=== PATIENT | female | born 1950 | race Caucasian/White ===

== ENCOUNTER 2018-06-05 10:29 | Outpatient (CLI) | payer MEDICARE ==
[~2018-06-05 10:29] MED LIST: Iopamidol 370 76% 100 ML VIAL ONE
--- NOTE | 2018-06-05 15:12 | CT ---
CT ABDOMEN WITH AND WITHOUT IV CONTRAST: CT PELVIS WITH AND WITHOUT IV CONTRAST: 06/05/2018 HISTORY: Hematuria for three years. History of prior appendectomy. COMPARISON: None available. FINDINGS: Minimal atelectasis is present in the region of the lingula. There is an approximately 5 mm pulmonar y nodule, left lower lobe, in addition to a linear nodular density at the posterior right lung base. The linear nodular areas of diminished attenuation are likely attributable to scarring. However, th ere are additional sub-4-mm nodular densities at the right lung base, as well as a few tiny pleural-b ased nodular densities, right lung base, largest measuring 4 mm. These nodular densities are overall nonspecific and do measure less than 6 mm. Degenerative changes are seen in the spine with S-shaped scoliotic curvature of the thoracolumbar spi ne. Subcentimeter sclerotic lesions are seen within the right iliac bone, which demonstrate interdig itated margins and are most suggestive of bone islands. Vascular calcifications are seen in the abdominal aorta and involving the iliac arteries No renal or ureteral calculi are seen bilaterally. Subcentimeter, fno-brxxy-th-characterize, hypoden se lesions are seen in each kidney. The largest hypodense lesions within the mid portion, right kidn ey, measuring 12 mm and 10 mm, respectively, demonstrate fluid attenuation most suggestive of small c ysts. No enhancing renal lesion is seen. No hydronephrosis or hydroureter is present. There is a subcentimeter, ncl-tfmze-yy-characterize, hypodense lesion at the posterior aspect, right hepatic lobe (image 15, series 3), which is too small to further characterize. The spleen, pancreas, and bilateral adrenal glands demonstrate a normal CT appearance. The urinary bladder is incompletely distended but, otherwise, grossly normal in appearance. The urinary bladder is lobulated in appearance with a slightly heterogeneous mass in the fundus of th e uterus, measuring 4 cm, which demonstrates multiple calcifications, consistent with uterine fibroid . Additional calcifications are also seen in the region of the body of the uterus, also likely relat ed to uterine fibroids. A small amount of retained fecal material is seen throughout the colon. The small bowel is normal in caliber. A tiny pericardial effusion is present. No free fluid, fluid collection, or lymphadenopathy is seen in the abdomen or pelvis. IMPRESSION: 1. Non-specific pulmonary nodules each lung base. Follow-up evaluation in six months is recommended . 2. Small right renal cyst, in addition to a subcentimeter, ins-oozqz-vi-characterize, hypodense lesi ons in each kidney. No renal or ureteral calculi are seen bilaterally, and there is enhancing renal m ass present. Delayed images demonstrate no definite filling defects within the visualized opacified renal collecting systems or segmentally visualized opacified ureters. 3. Subcentimeter, any-yriqz-fp-characterize, hypodense lesion, right hepatic lobe. 4. Tiny pericardial effusion. POS: [facility]
== END 2018-06-05 10:30 | disposition home or self-care (01) ==
LOC: SCSCT 10:29
PROVIDERS: ATTEND Urology
DX: R31.29 Other microscopic hematuria (principal); R91.8 Other nonspecific abnormal finding of lung field; N28.1 Cyst of kidney, acquired; N28.89 Other specified disorders of kidney and ureter; K76.9 Liver disease, unspecified; I31.3 Pericardial effusion (noninflammatory)
CPT/HCPCS: 74178; 82565

== ENCOUNTER 2019-01-24 13:51 | Outpatient (CLI) | payer MEDICARE ==
--- NOTE | 2019-01-24 16:30 | MMO ---
Bilateral MAMMO Bilat Screen [facility]DI. CLINICAL HISTORY: Patient is 68 years old and is seen for screening. The patient has the following family history of breast cancer: grandmother. The patient has no personal history of cancer. VIEWS: The views performed were: bilateral craniocaudal and bilateral mediolateral oblique. FILMS COMPARED: The present examination has been compared to prior imaging studies performed at [facility] on 07/18/2013, 11/14/2014, 02/24/2016 and 04/27/2017. This study has been interpreted with the assistance of computer-aided detection. MAMMOGRAM FINDINGS: There are scattered fibroglandular densities. There are stable benign appearing calcifications seen in both breasts. There are no suspicious masses, suspicious calcifications, or new areas of architectural distortion. IMPRESSION: THERE IS NO MAMMOGRAPHIC EVIDENCE OF MALIGNANCY. A ROUTINE FOLLOW-UP MAMMOGRAM IN 1 YEAR IS RECOMMENDED. ACR BI-RADS Category 2 - Benign finding MAMMOGRAPHY NOTE: 1. A negative mammogram report should not delay a biopsy if a dominant of clinically suspicious mass is present. 2. Approximately 10% to 15% of breast cancers are not detected by mammography. 3. Adenosis and dense breasts may obscure an underlying neoplasm.
== END 2019-01-24 13:52 | disposition home or self-care (01) ==
LOC: SCSMAMMO 13:51
PROVIDERS: ATTEND Obstetrics & Gynecology
DX: Z12.31 Encounter for screening mammogram for malignant neoplasm of breast (principal); Z80.3 Family history of malignant neoplasm of breast
CPT/HCPCS: 77067

== ENCOUNTER 2019-02-24 15:35 | Observation (INO) | payer MEDICARE ==
[2019-02-24] MEDS ORDERED: Ondansetron PF 4 MG/2 ML Vial ONE ×2 (16:02→16:50)
[2019-02-24] MEDS ORDERED: Meclizine HCl 25 MG TAB ONE (16:02)
[2019-02-24 16:22] LABS: #Lymphocytes 1.6 thou/uL (1.20-3.40); #Monocytes 0.3 thou/uL (0.11-0.59); #Neutrophils 5.1 thou/uL (1.40-6.50); %Basophils 0.6 % (0.0-1.0); %Eosinophils 0.5 % (0.0-10.0); %Lymphocytes 22.5 % (21.0-51.0); %Monocytes 4.2 % (0.0-10.0); %Neutrophils 72.2 % (42.0-75.0); Hemoglobin 15.6 g/dL (12.0-16.0); Mean Corpuscular HGB CONC 35.2 g/dL (32.0-36.0); Mean Corpuscular Hemoglobin 32.8 pg (27.0-31.0); Mean Corpuscular Volume 93.2 fL (78.0-98.0); Mean Platelet Volume 7.8 fL (7.4-10.4); Platelet Count 231 thou/uL (130-400); RBC Distribution Width 11.2 % (11.5-14.5); Red Blood Cell (RBC) Count 4.77 mill/uL (4.20-5.40); White Blood Cell (WBC) Count 7.1 thou/uL (4.8-10.8)
--- NOTE | 2019-02-24 16:32 | CT ---
EXAM: Brain CTWithout contrast: HISTORY: Vertigo COMPARISON: 05/17/2012 FINDINGS: No focal mass or midline shift. No intra or extra-axial hemorrhage. Sinuses and mastoids are clear of acute process. IMPRESSION: No mass or bleed or other significant acute intracranial process.
[2019-02-24 16:40] LABS: ALT (SGPT) 31 U/L (8-55); AST (SGOT) 23 U/L (5-34); Albumin 4.3 g/dL (3.4-4.8); Alkaline Phosphatase 130 U/L (40-150); Anion Gap 16 mmol/L (10-20); BUN (Urea Nitrogen) 10 mg/dL (9.8-20.1); Bilirubin, Total 0.4 mg/dL (0.2-1.2); Calc. Creatinine Clearance 0 mL/min (70-130); Calcium 10.6 mg/dL (7.8-10.44); Carbon Dioxide 25 mmol/L (23-31); Chloride 103 mmol/L (98-107); Estimated GFR-MDRD 84; Globulin 3.4 g/dL (2.4-3.5); Glucose 129 mg/dL (80-115); Potassium 3.5 mmol/L (3.5-5.1); Protein, Total 7.7 g/dL (6.0-8.3)
[2019-02-24 16:48] LABS: Sodium 140 mmol/L (136-145)
[2019-02-24] MEDS ORDERED: Aspirin Chewable 81 MG TAB ONE (16:50)
[2019-02-24] MEDS ORDERED: Promethazine HCl 25 MG/ML VIAL ONE (17:11)
[2019-02-24 17:31] LABS: Bilirubin Negative (Negative); Blood, Urine Trace (Negative); Clarity Hazy (Clear); Glucose, Urine (Dipstick) Negative (Negative); Leukocyte Trace (Negative); Nitrite Negative (Negative); Protein, Urine (Dipstick) Negative (Neg-Trace); Urobilinogen 0.2 mg/dL (0.2-1.0)
[2019-02-24 17:34] LABS: Bacteria/HPF 2+ HPF (None Seen); Crystals/HPF 1+ AMORPH URATES HPF (Negative); RBC/HPF 0-3 HPF (0-3); WBC/HPF 0-3 HPF (0-3)
[2019-02-24] MEDS ORDERED: diphenhydrAMINE 50 MG/ML VIAL ONE (17:42)
[2019-02-24 19:28] VITALS: BMI 30.7
[2019-02-24 20:04] LABS: Troponin I Less than 0.010 ng/mL (< 0.028)
[2019-02-24 23:34] LABS: Troponin I Less than 0.010 ng/mL (< 0.028)
[2019-02-24] MEDS ORDERED: Acetaminophen 650 MG Suppository PR PRN (23:45)
[2019-02-24] MEDS ORDERED: Sodium Chloride 0.9% 1,000 ML IV SCH (23:45)
[2019-02-24] MEDS ORDERED: Senokot S 8.6-50 MG TAB PO PRN (23:45)
[2019-02-24] MEDS ORDERED: Acetaminophen 325 MG TAB PO PRN (23:45)
[2019-02-25] MEDS ORDERED: Promethazine 25 MG TAB PO PRN (00:03)
[2019-02-25] MEDS: Lorazepam 0.5 MG TAB PO PRN ×2 (00:03→09:26)
--- NOTE | 2019-02-25 01:25 | HP ---
CHIEF COMPLAINT: Dizziness. HISTORY OF PRESENT ILLNESS: Ms. Elizondo is a 68-year-old woman with complaints of feeling unwell for the last 2 to 3 days. She states she began to note dizziness on and it has worsened today. She states she is experiencing a spinning sensation and often times feels as if her equilibrium is off. She has had difficulty walking as she feels off-balance and therefore ends up going backwards. Denies having any headaches. Reports having somewhat similar symptoms in the past that were not as prominent and states a new associated symptom of nausea. Denies any vomiting. No recent fevers, chills, or sweats. No chest pain or shortness of breath, but she does report a "flip-flop" sensation in her chest every once in a while. She denies any trauma. She does report chronic neck and back pain due to scoliosis, but is not experiencing any neck pain at this time. She was seen at the [facility] and was treated with Zofran and then Phenergan for nausea. When they gave the Phenergan, immediately it caused chattering of her teeth. She reports having some slight improvement, but still when moving around in the bed , she begins to feel dizzy. Patient states the last time she experienced this, she did undergo workup that was unremarkable. Denies having any associated slurred speech or vision disturbances. No extremity numbness or weakness. All other review of systems negative. PAST MEDICAL HISTORY: 1. Arrhythmia. 2. History of sinus tachycardia. 3. Hyperlipidemia. 4. High cholesterol. 5. High triglycerides. 6. Hypertension. 7. Anxiety. 8. Depression. PAST SURGICAL HISTORY: 1. Exploratory abdominal surgery. 2. Uterine ablation. 3. Appendectomy. 4. x3. 5. Tonsillectomy. ALLERGIES: 1. CODEINE. 2. SHELLFISH. CURRENT MEDICATIONS: 1. Amlodipine. 2. Aspirin. 3. Lisinopril. 4. Metoprolol. 5. Atorvastatin. 6. Paroxetine. 7. Lorazepam. 8. Zolpidem. 9. Calcium. 10. Vitamin C. PHYSICAL EXAMINATION: GENERAL: The patient was found resting comfortably in bed and sleeping. VITAL SIGNS: Temperature 98.5, pulse 87, respirations 12, and O2 saturation 96 % on room air. HEENT: Normocephalic and atraumatic. Pupils are equal, round, and reactive to light. Sclerae notable for injections bilaterally which the patient states is stable. She has seen Ophthalmology and ENT for this in the past. Extraocular movements intact. No notable lateral nystagmus. NECK: Supple with no tenderness. No nuchal rigidity. Full range of motion. CARDIAC: Regular rate and rhythm. No chest wall tenderness. LUNGS: Clear to auscultation bilaterally. ABDOMEN: Soft, nontender, and nondistended. Normoactive bowel sounds present. No guarding or rigidity. EXTREMITIES: No lower leg swelling or edema. NEUROLOGIC: Alert and oriented x3. No cerebellar signs. No neuro deficits. Cranial nerves 3 through 12 intact. Speech normal. Visual pepper intact. No tongue deviation. Power 5/5 in all limbs. LABORATORY DATA: White blood count 7.1, hemoglobin 15.7, hematocrit 44.4, and platelets 231. Sodium 140, potassium 3.5, anion gap 16, BUN 10, creatinine 0.70 , GFR 84, glucose 129, calcium 10.6, total bilirubin 0.4, AST 23, ALT 31, and alkaline phosphatase 130. Troponin I negative x2. Albumin 4.3. Urinalysis notable for trace blood, trace leukocyte esterase, 2+ bacteria, and 7 to 10 squamous epithelial cells. IMAGING DATA: CT brain, 02/24/2019. No mass or bleed or other significant acute intracranial process. IMPRESSION AND PLAN: Ms. Elizondo is a 68-year-old woman who is being referred for management of the followin. Cerebrovascular accident rule out. Patient with similar episode in the past and states she did undergo workup that was unremarkable. However, she is unsure what studies she had done or how long ago. We will complete a stroke workup. MRI of the brain requested as well as carotid Dopplers and an echocardiogram. We will continue meclizine t.i.d. and Phenergan as needed for nausea, vomiting. Patient was given aspirin in the emergency department. We will continue with daily baby aspirin and statin. Neuro consult placed. There is potential her symptoms may be associated with her chronic neck problems, though she does not have any obvious limited mobility in her neck or pain at this time. 2. Urinary tract infection. Urinalysis notable for leukocyte esterase, 2+ bacteria, and trace blood. Patient is asymptomatic with no fever or white count. We will await urine cultures and begin antibiotics if urine culture positive. 3. Hypertension. We will resume home medications and monitor blood pressure. 4. Anxiety. Patient states she does feel slightly anxious and feels that may be contributing to her nausea. We will resume her usual dose of Ativan 0.5 mg p.o. t.i.d. p.r.n. 5. Gastrointestinal prophylaxis. 6. Deep venous thrombosis prophylaxis with mechanical SCDs. 7. Code status. Full. Her surrogate decision maker is her , Bang Elizondo. Patient's case to be discussed with attending for further recommendations. Job ID: [id number] MTDD
[2019-02-25 05:08] LABS: #Basophils 0.1 thou/uL (0.0-0.2); #Eosinphils 0.1 thou/uL (0.0-0.7); #Lymphocytes 2.7 thou/uL (1.20-3.40); #Monocytes 0.6 thou/uL (0.11-0.59); #Neutrophils 4.8 thou/uL (1.40-6.50); %Basophils 0.9 % (0.0-1.0); %Eosinophils 1.8 % (0.0-10.0); %Monocytes 7.5 % (0.0-10.0); %Neutrophils 57.8 % (42.0-75.0); Hemoglobin 14.4 g/dL (12.0-16.0); Mean Corpuscular HGB CONC 34.2 g/dL (32.0-36.0); Mean Corpuscular Hemoglobin 33.9 pg (27.0-31.0); Mean Corpuscular Volume 99.1 fL (78.0-98.0); Mean Platelet Volume 7.8 fL (7.4-10.4); Platelet Count 232 thou/uL (130-400); RBC Distribution Width 11.2 % (11.5-14.5); Red Blood Cell (RBC) Count 4.24 mill/uL (4.20-5.40); White Blood Cell (WBC) Count 8.3 thou/uL (4.8-10.8)
[2019-02-25 05:29] LABS: Anion Gap 13 mmol/L (10-20); BUN (Urea Nitrogen) 10 mg/dL (9.8-20.1); Calc. Creatinine Clearance 89 mL/min (70-130); Calcium 9.7 mg/dL (7.8-10.44); Carbon Dioxide 23 mmol/L (23-31); Cardiac Risk 3.4 (Less than 4.5); Chloride 106 mmol/L (98-107); Cholesterol 192 mg/dl (< 200 Desired); Estimated GFR-MDRD 75; Glucose 100 mg/dL (80-115); HDL Cholesterol 56 mg/dL (>60 Neg Risk); LDL Cholesterol, Calculated 117 mg/dL; Potassium 3.5 mmol/L (3.5-5.1); Sodium 138 mmol/L (136-145); Triglycerides 97 mg/dL (Less than 150)
[2019-02-25] MEDS: Meclizine HCl 25 MG TAB PO SCH ×2 (05:50→13:56)
[2019-02-25] MEDS ORDERED: Lisinopril 20 MG TAB PO SCH (09:00)
[2019-02-25] MEDS ORDERED: Aspirin 81 mg Enteric Coated Tablet PO SCH (09:00)
[2019-02-25] MEDS ORDERED: Famotidine/PF 20 mg/2ml Vial SLOW IVP SCH (09:00)
[2019-02-25] MEDS ORDERED: Amlodipine 10 MG TAB PO SCH (09:00)
[2019-02-25] MEDS ORDERED: PARoxetine 20 MG TAB PO SCH (09:00)
--- NOTE | 2019-02-25 09:18 | ULT ---
ULTRASOUND CAROTID DOPPLER: HISTORY: Dizziness. COMPARISON: None. FINDINGS: Real-time, thurston scale, color Doppler, and spectral analysis of the extracranial carotid and vertebral arteries was performed. Mild plaque in both carotid bulbs. Antegrade flow of both vertebral arteries. No elevated peak syst olic velocities within the internal carotid arteries. IMPRESSION: No hemodynamically significant stenosis. POS: [facility]
--- NOTE | 2019-02-25 11:13 | MRI ---
Exam: Brain MRI without contrast HISTORY: Vertigo. Stroke. COMPARISON: 05/18/2012 FINDINGS: Calvarial marrow signal intensity: Appropriate T1 signal Gradient echo sequence: No hemorrhage Brain parenchyma: No mass, mass effect or midline shift. Brain volume, age-appropriate. Cortical thurston-white matter differentiation: Preserved Restricted diffusion: Central arterial flow voids are maintained. Absent restricted diffusion White matter signal intensities: T2, FLAIR white matter hyperintensities due to chronic small vessel ischemic changes Sinuses: Adequate aeration of the paranasal sinuses and mastoid air cells. IMPRESSION: 1. Absent restricted diffusion. No acute infarct. 2. Chronic small vessel ischemic changes of the white matter.
[2019-02-25] MEDS ORDERED: hydrALAZINE 20 MG/ML VIAL SLOW IVP PRN (13:10)
[2019-02-25 15:34] VITALS: BP 135/60; TEMP 98.6
--- NOTE | 2019-02-25 19:03 | DIS ---
DATE OF ADMISSION: 02/24/2019 DATE OF DISCHARGE: 02/25/2019 CHIEF COMPLAINT ON ADMISSION: Dizziness. DISCHARGE DIAGNOSES: 1. Dizziness secondary to vertigo, improved with meclizine. Stroke workup negative. 2. Hypertension. 3. History of sinus tachycardia/palpitations, well controlled this hospitalization, followed by Dr. Cho. 4. Anxiety, depression. 5. Hyperlipidemia. BRIEF HOSPITAL COURSE: The patient is a very pleasant 68-year-old female with past medical history significant for vertigo in the past, who presented to the hospital with complaints of 2 to 3-day history of sensation of the room spinning and some associated nausea. She has felt off balance and if her equilibrium is off. The patient presented for further workup and treatment since her symptoms had steadily gotten worse. Workup since her admission has included an MRI, which showed no evidence of any acute CVA. Her carotids were negative for any significant stenosis. Her symptoms steadily resolved with meclizine. She has ambulated the halls and feels much improved with meclizine and antiemetics. Her blood pressure has been controlled today. Her UA showed a trace amount of blood, leukocyte esterase, and 2+ urine bacteria; however, culture has been negative. PENDING AT DISCHARGE: Echocardiogram, completed. Urine culture, although no growth in 12 hours. DISCHARGE CONDITION: Stable. DISCHARGE CONDITION: Stable. DISCHARGE DISPOSITION: Home. DISCHARGE INSTRUCTIONS AND FOLLOWUP: The patient has seen vast improvement with meclizine and Zofran, and we will continue these medications outpatient. She will follow up with Dr. Bejarano in the next week along with Dr. Cho. Both echocardiogram and final results of urine culture may be followed up on as an outpatient, as she has established care with both Cardiology and PCP. She will continue her other home medications. The patient will be discharged home in good condition this evening. Job ID: [id number]
[2019-02-25] MEDS ORDERED: Atorvastatin Calcium 10 MG TAB PO SCH (21:00)
[2019-02-25] MEDS ORDERED: Atorvastatin Calcium 40 MG TAB PO SCH (21:00)
[2019-02-27 16:15] LABS: ANA Symphony (Qualitative) Negative (Negative); ANA Symphony (Quantitative) 0.2 Ratio (< 0.7 Negative); dsDNA IgG Antibody 0.8 IU/mL (<10 Negative)
== END 2019-02-25 18:56 | disposition home or self-care (01) ==
LOC: SCSER 15:35 → 2SW 18:47
PROVIDERS: ADMIT Family Medicine; ATTEND Family Medicine
DX: R42 Dizziness and giddiness (principal); I10 Essential (primary) hypertension; N39.0 Urinary tract infection, site not specified; F41.9 Anxiety disorder, unspecified; F32.9 Major depressive disorder, single episode, unspecified; E78.5 Hyperlipidemia, unspecified; E78.00 Pure hypercholesterolemia, unspecified; Z86.79 Personal history of other diseases of the circulatory system; Z88.5 Allergy status to narcotic agent; Z91.013 Allergy to seafood; Z79.82 Long term (current) use of aspirin; Z79.899 Other long term (current) drug therapy
CPT/HCPCS: 70450; 70551; 80048; 80053; 80061; 84484 ×2; 85025 ×2; 85652; 86038; 86225; 87086; 93005; 93306; 93880; 96361 ×2; 96374; 96375 ×2; 96376; 97116; 97139 ×5; 99285; G0378 ×2; 36415; 81003; 81015; J1200; J2405; J2550; J8597; S0028